=== PATIENT | male | born 1995 | race Caucasian/White ===

== ENCOUNTER 2016-06-26 21:35 | Emergency (ER) | payer MEDICAID, OTHER ==
[~2016-06-26] VITALS: Ht 170.2 cm; Wt 55.0 kg
[~2016-06-26 21:35] MED LIST: ARIP20 PO; BENZ1TAB PO; HALO5 PO; Patient Own Medication IM
[2016-06-26 21:39] VITALS: BP 156/72; PULSE 133; RESP 20; TEMP 99.2; O2SAT 98
[2016-06-26] MEDS ORDERED: BENZONATATE 100 MG CAP PO STA (22:08)
--- NOTE | 2016-06-26 22:11 | PD ---
HPI Chief Complaint: Cold / Flu Symptoms Time Seen by Provider: 22:00 Travel History International Travel<30 days: No Contact w/Intl Traveler<30days: No Traveled to known affect area: No History of Present Illness HPI This is a 20-year-old male with history of schizoaffective disorder who presents with his father's girlfriend for evaluation. For the past 3 days he has had cough, sore throat. The cough is worse tonight. He has been using over -the-counter cough and cold symptoms but it has persisted which prompted evaluation. He has had no recorded fevers. His father has had similar symptoms and his father was diagnosed with influenza, he is currently on Tamiflu. The patient has had difficulty sleeping because of the cough. He feels very anxious. Denies any drug use. He has no other complaints. PFSH Past Medical History ADHD: No Bipolar Disorder: Yes Anxiety: Yes Depression: Yes Cancer: No (Per patient) Cardiovascular Problems: No (Per patient) Diabetes: No Diminished Hearing: No Endocrine: No Genitourinary: No Headaches: No (Per patient) Immune Disorder: No Musculoskeletal: No Neurologic: No Psychiatric: Yes (Inpatient, outpatient, diagnosis and psychotropic medications ) Reproductive: No Respiratory: No Immunizations Current: No Migraines: No Schizophrenia: Yes Seizures: No (Per patient) Thyroid Disease: No Ulcer: No Past Surgical History Other Surgery: No Social History Alcohol Use: Yes (per hx..denied now) Tobacco Use: Yes (2-3 cigs a day) Substance Use: Yes (per hx..Admits to using: LSD, marijuana, hydrocodone, cocaine) Allergies-Medications (Allergen,Severity, Reaction): Coded Allergies: No Known Allergies (Verified , 06/26/16) Reported Meds & Prescriptions Reported Meds & Active Scripts Active Abilify (Aripiprazole) 20 Mg Tab 20 Mg PO 1/2BID Cogentin (Benztropine Mesylate) 1 Mg Tab 1 Mg PO 1/2 DAILY Haldol (Haloperidol) 5 Mg Tab 5 Mg PO HS [Patient Own Medication] 1 EA Ea 400 Ea IM Q30D ABILIFY MAINTAINA 400MG Review of Systems Except as stated in HPI: all other systems reviewed are Neg Physical Exam Narrative GENERAL: This is a well-developed well-nourished male in no acute distress. Pulse 133 in triage, he appears very anxious. Upon recheck it was 85. SKIN: Warm and dry. HEAD: Atraumatic. Normocephalic. EYES: Pupils equal and round. No scleral icterus. No injection or drainage. ENT: No nasal bleeding or discharge. Mucous membranes pink and moist. No oral pharyngeal erythema or exudate. NECK: Trachea midline. No JVD. No lymphadenopathy CARDIOVASCULAR: Regular rate and rhythm. No murmur appreciated. RESPIRATORY: No accessory muscle use. Clear to auscultation. Breath sounds equal bilaterally. No crackles no wheezing or rhonchi GASTROINTESTINAL: Abdomen soft, non-tender, nondistended. Hepatic and splenic margins not palpable. MUSCULOSKELETAL: No obvious deformities. No edema. NEUROLOGICAL: Awake and alert. No obvious cranial nerve deficits. Motor grossly within normal limits. Normal speech. Data Data Last Documented VS Vital Signs Date Time Temp Pulse Resp B/P Pulse Ox O2 Delivery O2 Flow Rate FiO2 06/26/16 22:12 85 06/26/16 21:39 99.2 20 156/72 98 Room Air Orders Chest, Pa & Lat (06/26/16 ) Influenzae A/B Antigen (06/26/16 22:08) Benzonatate (Tessalon) (06/26/16 22:08) Ibuprofen (Motrin) (06/26/16 22:15) MDM Medical Decision Making Medical Screen Exam Complete: Yes Emergency Medical Condition: Yes Medical Record Reviewed: Yes Differential Diagnosis Influenza, bronchitis, pneumonia Narrative Course 20-year-old male with 3 days of cough and congestion. Initially tachycardic in triage, appearing very anxious. He was immediately rechecked when he was embedded and his pulse was 85. I feel that this was secondary to anxiety. He does not appear septic. Plan is for chest x-ray, influenza. Tessalon and ibuprofen administered. Chest x-ray is normal. Influenza antigen is normal however given history of his father being diagnosed with influenza I suspect that the patient has influenza as well. Symptoms started 3 days ago and therefore Tamiflu would not be prescribed. He will be discharged with Tessalon for cough suppression. Diagnosis Primary Impression: Upper respiratory infection Qualified Code: J06.9 - Upper respiratory tract infection, unspecified type Additional Instructions: Tessalon for cough. Stay well hydrated well-nourished. [id number] Tylenol or Motrin for fever per dosing instructions on the bottle. Follow-up with primary care physician as needed. Return for any emergent medical conditions. Med/Other Pt SpecificInfo: Prescription(s) given Scripts Benzonatate (Tessalon Perles)100 Mg [id number] Mg PO TID PRN (COUGH) #30 CAP Ref 0 Prov:Maulik Ryan MD 06/26/16 Disposition: 01 DISCHARGE HOME Condition: Stable Connor Narayanan Jun 26, 2016 22:11
[2016-06-26 22:12] VITALS: PULSE 85
[2016-06-26] MEDS ORDERED: IBUPROFEN 800 MG TAB PO ONE (22:15)
--- NOTE | 2016-06-26 22:44 | RADRPT ---
EXAM DATE/TIME: 06/26/2016 22:33 [facility] COMPARISON: CHEST SINGLE AP, April 02, 2014, 14:23. INDICATIONS : Cough, shortness of breath for 1 week MEDICAL HISTORY : None. SURGICAL HISTORY : None. ENCOUNTER: Initial ACUITY: 1 week PAIN SCORE: 0/10 LOCATION: Bilateral chest FINDINGS: PA and lateral views of the chest demonstrate the lungs to be symmetrically aerated without evidence of mass, infiltrate or effusion. The cardiomediastinal contours are unremarkable. Osseous structure s are intact. There is a mild thoracic dextroconvex curvature. CONCLUSION: No evidence of acute cardiopulmonary disease. Mic Villegas MD on June 26, 2016 at 22:42 Board Certified Radiologist. This report was verified electronically.
[2016-06-26] MEDS ORDERED: BENZ100 PO (23:12)
== END 2016-06-26 23:42 | disposition home or self-care (01) ==
LOC: NEPK 21:35
DX: J06.9 Acute upper respiratory infection, unspecified (principal); Z72.0 Tobacco use
CPT/HCPCS: 71020; 87804; 99283

== ENCOUNTER 2016-10-08 17:17 | Emergency (ER) | payer MEDICAID ==
[~2016-10-08] VITALS: Ht 170.2 cm; Wt 55.0 kg
[~2016-10-08 17:17] MED LIST changes: +BENZ100 PO
[2016-10-08 17:18] VITALS: BP 139/92; PULSE 114; RESP 16; TEMP 98.3; O2SAT 99
--- NOTE | 2016-10-08 18:00 | PD ---
Physical Exam Time Seen by Provider: 17:59 Narrative 21 y/o male hx of schizophrenia here for evaluation of L hand pain secondary to "arthritis." Vital signs reviewed. Seen at triage desk. Awaiting bed placement. Data Data Last Documented VS Vital Signs Date Time Temp Pulse Resp B/P Pulse Ox O2 Delivery O2 Flow Rate FiO2 10/08/16 17:18 98.3 114 16 139/92 99 MDM Medical Record Reviewed: Yes Supervised Visit with ESTEVAN: Connor Bustamante Oct 08, 2016 18:00
== END 2016-10-08 21:21 | disposition left against medical advice (07) ==
LOC: NED 17:17
DX: M25.542 Pain in joints of left hand (principal); M19.90 Unspecified osteoarthritis, unspecified site; F20.9 Schizophrenia, unspecified
CPT/HCPCS: 99281

== ENCOUNTER 2016-10-09 10:10 | Emergency (ER) | payer MEDICAID ==
[~2016-10-09] VITALS: Ht 170.2 cm; Wt 55.0 kg
[2016-10-09 10:11] VITALS: BP 145/72; PULSE 97; RESP 20; TEMP 99; O2SAT 99
--- NOTE | 2016-10-09 10:47 | PD ---
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 He reports weakness to the left hand. Denies new or recent injury. Denies fever, vomiting. He has no emergent medical complaints at this time. Symptoms are mild in severity. Has no other medical complaints. Notify factors or associated signs and symptoms. History Past Medical Histgory Hx Cancer: No (Per patient) Social History Alcohol Use: Yes (per hx..denied now) Tobacco Use: Yes (2-3 cigs a day) Allergies-Medications (Allergen,Severity, Reaction): Coded Allergies: No Known Allergies (Verified , 10/08/16) Reported Meds & Prescriptions Reported Meds & Active Scripts Active Tessalon Perles (Benzonatate) 100 Mg Cap 200 Mg PO TID PRN [Patient Own Medication] 1 EA Ea 400 Ea IM Q30D ABILIFY MAINTAINA 400MG Abilify 20 mg (Aripiprazole) 20 Mg Tab 20 Mg PO 1/2BID Benztropine Mesylate 1 Mg Tab 1 Mg PO 1/2 DAILY Haldol (Haloperidol) 5 Mg Tab 5 Mg PO HS Review of Systems Except as stated in HPI: all other systems reviewed are Neg Physical Exam Narrative GENERAL: Well-nourished, well-developed male patient, in no acute distress SKIN: Warm and dry. HEAD: Atraumatic. Normocephalic. EYES: Pupils equal and round. No scleral icterus. No injection or drainage. ENT: Mucosa pink and moist. Airway patent. NECK: Trachea midline. CARDIOVASCULAR: Regular rate. RESPIRATORY: No accessory muscle use. GASTROINTESTINAL: Flat. MUSCULOSKELETAL: Left upper extremities supple and non-tense with 2+ radial pulses and sensory intact; mildly decreased steel turner strength compared to the right hand; left forearm and hand appears thinner than the right forearm; with full range of motion at the shoulder, elbow, wrist and all finger joints. No clubbing. No cyanosis. No edema. NEUROLOGICAL: Awake and alert. Oriented 3. No obvious cranial nerve deficits. Motor grossly within normal limits. Normal speech. PSYCHIATRIC: Appropriate mood and affect; insight and judgment normal. Data Data Last Documented VS Vital Signs Date Time Temp Pulse Resp B/P Pulse Ox O2 Delivery O2 Flow Rate FiO2 10/09/16 10:11 99.0 97 20 145/72 99 Room Air MDM Medical Screen Exam Complete: Yes Emergency Medical Condition: No Differential Diagnosis Medical clearance, malingering, atrophy of left forearm and hand, arthritis Narrative Course 21-year-old male requesting a letter to be sent to a gentleman that works for the [employer] so he can be approved for a medical marijuana card. Vital signs are stable and the patient is stable for outpatient follow-up and treatment. The patient has no urgent or emergent medical complaints. There is no emergent or urgent medical need at this time. I instructed the patient to follow up with their primary care provider. A medical screening exam was performed: At the time of evaluation the presenting medical condition was determined not to be of an emergent nature. The patient was given the option of receiving additional care, but declined. Patient was given options for additional community resources from which to obtain care. The Patient Has Been advised to seek medical attention for their presenting complaint. The patient has been advised to return to the ER at any time if an emergent condition develops. Primary Impression: Encounter for medical screening examination Condition: Stable Ebonie Pratt [facility] Oct 09, 2016 10:47
== END 2016-10-09 10:49 | disposition left against medical advice (07) ==
LOC: NEPK 10:10
DX: M62.81 Muscle weakness (generalized) (principal)
CPT/HCPCS: 99281

== ENCOUNTER 2016-12-06 19:53 | Emergency (ER) | payer MEDICAID, OTHER ==
[~2016-12-06] VITALS: Ht 162.6 cm; Wt 60.0 kg
[2016-12-06 19:56] VITALS: BP 112/89; PULSE 89; RESP 16; TEMP 99.1; O2SAT 99
[2016-12-06] MEDS ORDERED: LORazepam 2 MG/ML VIAL IM ONE (20:15)
--- NOTE | 2016-12-06 20:19 | PD ---
HPI Chief Complaint: Psychiatric Symptoms Time Seen by Provider: 20:07 Travel History International Travel<30 days: No Contact w/Intl Traveler<30days: No Traveled to known affect area: No History of Present Illness HPI 21 YO M with PMH of bipolar, depression, anxiety presents to the ED under [facility] for psychiatric evaluation. Per the [facility] paperwork the patient made suicidal statements. He is currently on medication for schizophrenia has not been able to adjust mentally to the new dosage. On presentation the patient is angry, defiant, cursing, refusing examination. He states "My Dad always says I'm psychotic, when I'm not." He is unable to provide any meaningful history. PFSH Past Medical History ADHD: No Bipolar Disorder: Yes Anxiety: Yes Depression: Yes Cancer: No (Per patient) Cardiovascular Problems: No (Per patient) Diabetes: No Diminished Hearing: No Endocrine: No Genitourinary: No Headaches: No (Per patient) Immune Disorder: No Musculoskeletal: No Neurologic: No Psychiatric: Yes (Inpatient, outpatient, diagnosis and psychotropic medications ) Reproductive: No Respiratory: No Immunizations Current: No Migraines: No Schizophrenia: Yes Seizures: No (Per patient) Thyroid Disease: No Ulcer: No Past Surgical History Other Surgery: No Social History Alcohol Use: Yes (per hx..denied now) Tobacco Use: Yes (2-3 cigs a day) Substance Use: Yes (per hx..Admits to using: LSD, marijuana, hydrocodone, cocaine) Allergies-Medications (Allergen,Severity, Reaction): Coded Allergies: No Known Allergies (Verified , 10/08/16) Reported Meds & Prescriptions Reported Meds & Active Scripts Active Reported Abilify Maintena ER Inj (Aripiprazole) 300 Mg Susp 300 Mg IM Q28D Review of Systems Except as stated in HPI: all other systems reviewed are Neg Physical Exam Exam Limitations: Uncooperative Narrative GENERAL: Well-nourished, well-developed male in no acute distress. PSYCHIATRIC: Angry, defensive, responding to internal stimuli. SKIN: Focused skin assessment warm/dry. HEAD: Normocephalic. EYES: No scleral icterus. No injection or drainage. NECK: Supple, trachea midline. No JVD or lymphadenopathy. CARDIOVASCULAR: Regular rate and rhythm without murmurs, gallops, or rubs. RESPIRATORY: Breath sounds and equal bilaterally. No accessory muscle use. GASTROINTESTINAL: Abdomen soft, non-tender, nondistended. Active bowel sounds. MUSCULOSKELETAL: No cyanosis, or edema. Moves easily from sitting to standing positions. BACK: Nontender without obvious deformity. No CVA tenderness. Data Data Last Documented VS Vital Signs Date Time Temp Pulse Resp B/P (MAP) Pulse Ox O2 Delivery O2 Flow Rate FiO2 12/06/16 19:56 99.1 89 16 112/89 (97) 99 Orders Orders Complete Blood Count With Diff (12/06/16 20:11) Comprehensive Metabolic Panel (12/06/16 20:11) Psych Screen (12/06/16 20:11) Lorazepam Inj (Ativan Inj) (12/06/16 20:15) Restraints Violent (12/06/16 20:11) Drug Screen, Random Urine (12/06/16 20:11) Diet Regular Basic (12/06/16 Dinner) Haloperidol Inj (Haldol Inj) (12/06/16 21:45) Labs Laboratory Tests Test 12/06/16 20:10 White Blood Count 10.2 TH/MM3 Red Blood Count 5.17 MIL/MM3 Hemoglobin 15.3 GM/DL Hematocrit 46.1 % Mean Corpuscular Volume 89.2 FL Mean Corpuscular Hemoglobin 29.6 PG Mean Corpuscular Hemoglobin Concent 33.2 % Red Cell Distribution Width 13.5 % Platelet Count 282 TH/MM3 Mean Platelet Volume 7.9 FL Neutrophils (%) (Auto) 59.8 % Lymphocytes (%) (Auto) 30.9 % Monocytes (%) (Auto) 8.8 % Eosinophils (%) (Auto) 0.1 % Basophils (%) (Auto) 0.4 % Neutrophils # (Auto) 6.1 TH/MM3 Lymphocytes # (Auto) 3.1 TH/MM3 Monocytes # (Auto) 0.9 TH/MM3 Eosinophils # (Auto) 0.0 TH/MM3 Basophils # (Auto) 0.0 TH/MM3 CBC Comment DIFF FINAL Differential Comment Blood Urea Nitrogen 11 MG/DL Creatinine 0.98 MG/DL Random Glucose 92 MG/DL Total Protein 7.9 GM/DL Albumin 4.6 GM/DL Calcium Level 9.4 MG/DL Alkaline Phosphatase 71 U/L Aspartate Amino Transf (AST/SGOT) 16 U/L Alanine Aminotransferase (ALT/SGPT) 18 U/L Total Bilirubin 0.7 MG/DL Sodium Level 139 MEQ/L Potassium Level 3.5 MEQ/L Chloride Level 104 MEQ/L Carbon Dioxide Level 27.2 MEQ/L Anion Gap 8 MEQ/L Estimat Glomerular Filtration Rate 97 ML/MIN Urine Opiates Screen NEG Urine Barbiturates Screen NEG Urine Amphetamines Screen NEG Urine Benzodiazepines Screen NEG Urine Cocaine Screen NEG Urine Cannabinoids Screen NEG MDM Medical Decision Making Medical Screen Exam Complete: Yes Emergency Medical Condition: Yes Differential Diagnosis Adjustment disorder versus anxiety versus bipolar versus depression versus dementia versus electrolyte disorder versus malingering versus mood disorder versus ODD versus psychosis versus PTSD versus schizophrenia versus schizoaffective disorder versus substance-induced mood disorder versus other Narrative Course 21 YO M with PMH of bipolar, depression, anxiety presents to the ED under [facility] for psychiatric evaluation. Per the [facility] paperwork the patient made suicidal statements. He is currently on medication for schizophrenia has not been able to adjust mentally to the new dosage. On presentation the patient is angry, defiant, cursing, refusing examination. He states "My Dad always says I'm psychotic, when I'm not." He is unable to provide any meaningful history. Vitals reviewed. Patient was administered 2 mg Ativan IM. I was able to obtain a better history, although the patient is tangential and difficult to redirect. Apparently the patient was listening to some music on his headphones he stated that it "sounded different" and made him feel suicidal. He denies auditory or visual hallucinations. He becomes very defensive, saying "they always ask you that to tell if your psychotic and I'm not." He denies suicidal or homicidal ideation. He denies somatic complaints. He says that he gets bimonthly injections at [facility] but he does not know the name of the medication. Physical exam is unremarkable. No concerning abnormalities or lab work. He is responding to internal stimuli. The patient is medically cleared for psychiatric evaluation. Discharge per psychiatric recommendations. Fabi Olmos Dec 06, 2016 20:19
[2016-12-06 20:44] LABS: AUTOMATED NEUTROPHIL # 6.1 TH/MM3 (1.8-7.7); BASOPHIL % 0.4 % (0.0-2.0); EOSINOPHIL % 0.1 % (0.0-4.0); HEMATOCRIT 46.1 % (39.0-51.0); HEMO FLAGS DIFF FINAL; LYMPH % 30.9 % (9.0-44.0); LYMPHOCYTE # 3.1 TH/MM3 (1.0-4.8); MEAN CELL VOLUME 89.2 FL (80.0-100.0); MEAN CORPUSCULAR HEMOGLOBIN 29.6 PG (27.0-34.0); MEAN CORPUSCULAR HGB CONC 33.2 % (32.0-36.0); MONO % 8.8 % (0.0-8.0); NEUT % 59.8 % (16.0-70.0); PLATELET COUNT 282 TH/MM3 (150-450); RED BLOOD COUNT 5.17 MIL/MM3 (4.50-5.90); RED CELL DISTRIBUTION WIDTH 13.5 % (11.6-17.2); WHITE BLOOD COUNT 10.2 TH/MM3 (4.0-11.0)
[2016-12-06 20:56] LABS: ANION GAP 8 MEQ/L (5-15); AST (GOT) 16 U/L (15-37); BICARBONATE 27.2 MEQ/L (21.0-32.0); BLOOD UREA NITROGEN 11 MG/DL (7-18); CHLORIDE 104 MEQ/L (98-107); GLOMERULAR FILTRATION RATE 97 ML/MIN (>89); POTASSIUM 3.5 MEQ/L (3.5-5.1); SODIUM (NA) 139 MEQ/L (136-145)
[2016-12-06 20:58] LABS: ALT (GPT) 18 U/L (12-78)
[2016-12-06 20:59] LABS: ALKALINE PHOSPHATASE 71 U/L (45-117); TOTAL BILIRUBIN ADULT 0.7 MG/DL (0.2-1.0)
[2016-12-06] MEDS ORDERED: HALOPERIDOL LACTATE 5 MG/ML AMP IM ONE (21:45)
[2016-12-06] MEDS ORDERED: ARIP300I IM (22:03)
[2016-12-06] MEDS ORDERED: ARIP400I IM (22:17)
== END 2016-12-07 00:53 ==
LOC: NEPD 19:53
DX: F20.9 Schizophrenia, unspecified (principal); Z72.0 Tobacco use
CPT/HCPCS: 80053; 80307; 85025; 96372; 99284; J1630; J2060

== ENCOUNTER 2017-03-21 16:03 | Emergency (ER) | payer SELFPAY ==
[~2017-03-21 16:03] MED LIST changes: -ARIP20 PO; +ARIP400I IM; -BENZ100 PO; -BENZ1TAB PO; -HALO5 PO; -Patient Own Medication IM
[2017-03-21 16:11] VITALS: BP 127/59; PULSE 125; RESP 18; TEMP 97.6; O2SAT 100
--- NOTE | 2017-03-21 17:09 | PD ---
HPI Chief Complaint: Seizure Time Seen by Provider: 16:25 Travel History International Travel<30 days: No Contact w/Intl Traveler<30days: No Traveled to known affect area: No History of Present Illness HPI Patient is a 21-year-old male presents emergency department for evaluation of seizure-like activity while playing be due games. Patient has no history of seizure activity in the past. Does take Wellbutrin for depression and apparent psychosis. Dad states he was playing be against her thumb and then went to investigate and found the patient on the floor shaking violently, he was confused for several minutes following the event and a period of what dad describes as near apnea but only lasted for a few seconds. That is certainly quite concerned with the patient's presentation. Patient states he feels well now only complains of a mild abrasion to his left periorbital region. Denies any chest pain shortness of breath extremity pain back pain nausea vomiting diarrhea visual difficulties or headache. PFSH Past Medical History ADHD: No Bipolar Disorder: Yes Anxiety: Yes Depression: Yes Diabetes: No Diminished Hearing: No Endocrine: No Genitourinary: No Immune Disorder: No Musculoskeletal: No Neurologic: No Psychiatric: Yes (Inpatient, outpatient, diagnosis and psychotropic medications ) Reproductive: No Respiratory: No Immunizations Current: No Migraines: No Schizophrenia: Yes Thyroid Disease: No Ulcer: No ?: Not Past Surgical History Other Surgery: No Social History Alcohol Use: Yes (per hx..denied now) Tobacco Use: Yes (2-3 cigs a day) Substance Use: Yes (per hx..Admits to using: LSD, marijuana, hydrocodone, cocaine) Allergies-Medications (Allergen,Severity, Reaction): Coded Allergies: No Known Allergies (Verified Adverse Reaction, Unknown, 03/21/17) Reported Meds & Prescriptions Reported Meds & Active Scripts Active Reported Wellbutrin SR 12 HR (Bupropion HCl) 150 Mg Tab 150 Mg PO Q12HR Abilify (Aripiprazole) 15 Mg Tab 15 Mg PO DAILY Review of Systems Except as stated in HPI: all other systems reviewed are Neg Physical Exam Narrative GENERAL: Well-developed well-nourished no obvious distress SKIN: Focused skin assessment warm/dry. HEAD: No crisostomo signs no raccoons eyes, there is a half centimeter laceration superficial about a centimeter lateral and superficial to the left lateral canthus, there is also some abrasion here.. Normocephalic. EYES: Pupils equal and round. No scleral icterus. No injection or drainage. ENT: No nasal bleeding or discharge. Mucous membranes pink and moist. No tongue laceration oropharynx clear. NECK: Trachea midline. No JVD. CARDIOVASCULAR: Regular rate and rhythm. No murmur appreciated. RESPIRATORY: No accessory muscle use. Clear to auscultation. Breath sounds equal bilaterally. GASTROINTESTINAL: Abdomen soft, non-tender, nondistended. Hepatic and splenic margins not palpable. MUSCULOSKELETAL: No obvious deformities. No clubbing. No cyanosis. No edema. NEUROLOGICAL: Awake and alert. Cranial nerves II through XII are grossly intact and nonfocal, 5 out of 5 strength in all 4 extremity's, cerebellar testing negative, and relates with an even narrow based gait. PSYCHIATRIC: Appropriate mood and affect; insight and judgment normal. Data Data Last Documented VS Vital Signs Date Time Temp Pulse Resp B/P (MAP) Pulse Ox O2 Delivery O2 Flow Rate FiO2 03/21/17 17:15 113 18 100 Room Air 03/21/17 16:11 97.6 127/59 (81) Orders Orders Complete Blood Count With Diff (03/21/17 17:01) Basic Metabolic Panel (Bmp) (03/21/17 17:01) Ct Brain W/O Iv Contrast(Rout) (03/21/17 ) Ecg Monitoring (03/21/17 17:01) Iv Access Insert/Monitor (03/21/17 17:01) Oximetry (03/21/17 17:01) Sodium Chloride 0.9% Flush (Ns Flush) (03/21/17 17:15) Ed Discharge Order (03/21/17 18:41) Mandatory Outpatient Referral (03/21/17 19:52) Labs Laboratory Tests Test 03/21/17 17:19 White Blood Count 15.6 TH/MM3 Red Blood Count 5.16 MIL/MM3 Hemoglobin 15.7 GM/DL Hematocrit 46.3 % Mean Corpuscular Volume 89.8 FL Mean Corpuscular Hemoglobin 30.4 PG Mean Corpuscular Hemoglobin Concent 33.9 % Red Cell Distribution Width 12.8 % Platelet Count 258 TH/MM3 Mean Platelet Volume 8.3 FL Neutrophils (%) (Auto) 87.8 % Lymphocytes (%) (Auto) 6.5 % Monocytes (%) (Auto) 5.2 % Eosinophils (%) (Auto) 0.2 % Basophils (%) (Auto) 0.3 % Neutrophils # (Auto) 13.7 TH/MM3 Lymphocytes # (Auto) 1.0 TH/MM3 Monocytes # (Auto) 0.8 TH/MM3 Eosinophils # (Auto) 0.0 TH/MM3 Basophils # (Auto) 0.1 TH/MM3 CBC Comment DIFF FINAL Differential Comment Blood Urea Nitrogen 10 MG/DL Creatinine 1.02 MG/DL Random Glucose 106 MG/DL Calcium Level 8.9 MG/DL Sodium Level 138 MEQ/L Potassium Level 4.0 MEQ/L Chloride Level 103 MEQ/L Carbon Dioxide Level 25.9 MEQ/L Anion Gap 9 MEQ/L Estimat Glomerular Filtration Rate 92 ML/MIN MDM Medical Decision Making Medical Screen Exam Complete: Yes Emergency Medical Condition: Yes Differential Diagnosis Epileptic seizure, medication reaction, electro-light abnormality, head injury, laceration. Narrative Course Is roomed emergency department, neurologically nonfocal on arrival, appears to have seizure brought on by video game. No seizure activity seen in the emergency department, neurologically nonfocal, initial workup including CBC BMP CT head negative. Discussed with him symptomatic management first aid for seizures returned ED criteria follow-up with neurology as well as his prescribing physician. Dad also states that he's been out of his Wellbutrin starting today. He is stable for discharge. Is no indication to start antiepileptics after a first seizure. Diagnosis Primary Impression: Seizure Referrals: Mani Nagel MD Additional Instructions: Discussed with her psychiatrist at your earliest possible convenience with possibility of discontinuing Wellbutrin as this may contribute to seizures. You are not to play any video games until discussing with both her psychiatrist in Dr. Nagel's as this may trigger an additional seizure Disposition: 01 DISCHARGE HOME Condition: Stable Elvis Canseco MD Mar 21, 2017 17:09
[2017-03-21 17:15] VITALS: PULSE 113; RESP 18; O2SAT 100
[2017-03-21] MEDS ORDERED: SODIUM CHLORIDE 0.9% FLUSH 10 ML FLUSH IVF PRN (17:15)
[2017-03-21] MEDS ORDERED: BUPR150CR PO (17:15)
[2017-03-21] MEDS ORDERED: ABIL15TA3 PO (17:15)
[2017-03-21 17:30] LABS: AUTOMATED NEUTROPHIL # 13.7 TH/MM3 (1.8-7.7); BASOPHIL # 0.1 TH/MM3 (0-0.2); BASOPHIL % 0.3 % (0.0-2.0); EOSINOPHIL % 0.2 % (0.0-4.0); HEMATOCRIT 46.3 % (39.0-51.0); HEMOGLOBIN 15.7 GM/DL (13.0-17.0); LYMPH % 6.5 % (9.0-44.0); MEAN CELL VOLUME 89.8 FL (80.0-100.0); MEAN CORPUSCULAR HEMOGLOBIN 30.4 PG (27.0-34.0); MEAN CORPUSCULAR HGB CONC 33.9 % (32.0-36.0); MEAN PLATELET VOLUME 8.3 FL (7.0-11.0); MONO % 5.2 % (0.0-8.0); MONOCYTE # 0.8 TH/MM3 (0-0.9); NEUT % 87.8 % (16.0-70.0); PLATELET COUNT 258 TH/MM3 (150-450); RED BLOOD COUNT 5.16 MIL/MM3 (4.50-5.90); RED CELL DISTRIBUTION WIDTH 12.8 % (11.6-17.2); WHITE BLOOD COUNT 15.6 TH/MM3 (4.0-11.0)
[2017-03-21 18:00] LABS: BICARBONATE 25.9 MEQ/L (21.0-32.0); CALCIUM 8.9 MG/DL (8.5-10.1); CREATININE 1.02 MG/DL (0.60-1.30)
--- NOTE | 2017-03-21 18:23 | RADRPT ---
EXAM DATE/TIME: 03/21/2017 18:04 [facility] COMPARISON: CT BRAIN W/O CONTRAST, April 02, 2014, 7:26. INDICATIONS : Syncope, fell hit head, seizure. RADIATION DOSE: 36.93 CTDIvol (mGy) MEDICAL HISTORY : Seizures. Cardiovascular disease Schizophrenic, cancer unknow etilogy SURGICAL HISTORY : None. ENCOUNTER: Initial ACUITY: 1 day PAIN SCALE: 4/10 LOCATION: Left brow and eye TECHNIQUE: Multiple contiguous axial images were obtained of the head. Using automated exposure control and adj ustment of the mA and/or kV according to patient size, radiation dose was kept as low as reasonably a chievable to obtain optimal diagnostic quality images. DICOM format image data is available electro nically for review and comparison. FINDINGS: CEREBRUM: The ventricles are normal for age. No evidence of midline shift, mass lesion, hemorrhage or acute in farction. No extra-axial fluid collections are seen. POSTERIOR FOSSA: The cerebellum and brainstem are intact. The 4th ventricle is midline. The cerebellopontine angle i s unremarkable. EXTRACRANIAL: The visualized portion of the orbits is intact. SKULL: The calvaria is intact. No evidence of skull fracture. CONCLUSION: Normal examination. Conrad Chino Jr., MD on March 21, 2017 at 18:20 Board Certified Radiologist. This report was verified electronically.
--- NOTE | 2017-03-21 20:01 | PD ---
Physical Exam Time Seen by Provider: 19:20 Data Data Last Documented VS Vital Signs Date Time Temp Pulse Resp B/P (MAP) Pulse Ox O2 Delivery O2 Flow Rate FiO2 03/21/17 17:15 113 18 100 Room Air 03/21/17 16:11 97.6 127/59 (81) Orders Orders Complete Blood Count With Diff (03/21/17 17:01) Basic Metabolic Panel (Bmp) (03/21/17 17:01) Ct Brain W/O Iv Contrast(Rout) (03/21/17 ) Ecg Monitoring (03/21/17 17:01) Iv Access Insert/Monitor (03/21/17 17:01) Oximetry (03/21/17 17:01) Sodium Chloride 0.9% Flush (Ns Flush) (03/21/17 17:15) Ed Discharge Order (03/21/17 18:41) Mandatory Outpatient Referral (03/21/17 19:52) Labs Laboratory Tests Test 03/21/17 17:19 White Blood Count 15.6 TH/MM3 Red Blood Count 5.16 MIL/MM3 Hemoglobin 15.7 GM/DL Hematocrit 46.3 % Mean Corpuscular Volume 89.8 FL Mean Corpuscular Hemoglobin 30.4 PG Mean Corpuscular Hemoglobin Concent 33.9 % Red Cell Distribution Width 12.8 % Platelet Count 258 TH/MM3 Mean Platelet Volume 8.3 FL Neutrophils (%) (Auto) 87.8 % Lymphocytes (%) (Auto) 6.5 % Monocytes (%) (Auto) 5.2 % Eosinophils (%) (Auto) 0.2 % Basophils (%) (Auto) 0.3 % Neutrophils # (Auto) 13.7 TH/MM3 Lymphocytes # (Auto) 1.0 TH/MM3 Monocytes # (Auto) 0.8 TH/MM3 Eosinophils # (Auto) 0.0 TH/MM3 Basophils # (Auto) 0.1 TH/MM3 CBC Comment DIFF FINAL Differential Comment Blood Urea Nitrogen 10 MG/DL Creatinine 1.02 MG/DL Random Glucose 106 MG/DL Calcium Level 8.9 MG/DL Sodium Level 138 MEQ/L Potassium Level 4.0 MEQ/L Chloride Level 103 MEQ/L Carbon Dioxide Level 25.9 MEQ/L Anion Gap 9 MEQ/L Estimat Glomerular Filtration Rate 92 ML/MIN [facility] Medical Record Reviewed: Yes Supervised Visit with ESTEVAN: Yes Narrative Course I was asked by Dr. Canseco to repair a laceration on this patient. Please see his note for details. Procedures Procedure Narrative LACERATION LOCATION: Left eyelid LENGTH: 0.5 cm REPAIR: The area of the laceration was prepped with chlorhexidine. The wound was copiously irrigated and explored without evidence of foreign body, tendon injury or neurovascular injury. The wound was closed using Dermabond. This was a single layer repair. A sterile dressing was applied. The patient was advised to keep the dressing clean and dry. Patient tolerated the procedure well. Diagnosis Primary Impression: Seizure Referrals: Mani Nagel MD Patient Instructions: General Instructions, Epilepsy (ED) Departure Forms: Tests/Procedures Additional Instruction: Discussed with her psychiatrist at your earliest possible convenience with possibility of discontinuing Wellbutrin as this may contribute to seizures. You are not to play any video games until discussing with both her psychiatrist in Dr. Nagel's as this may trigger an additional seizure Disposition: 01 DISCHARGE HOME Condition: Stable Jessica Taylro Mar 21, 2017 20:01
== END 2017-03-21 20:18 | disposition home or self-care (01) ==
LOC: NEPE 16:03
DX: R56.9 Unspecified convulsions (principal); S01.112A Laceration without foreign body of left eyelid and periocular area, initial encounter; F31.9 Bipolar disorder, unspecified; F41.8 Other specified anxiety disorders; F20.9 Schizophrenia, unspecified; Z72.0 Tobacco use; X58.XXXA Exposure to other specified factors, initial encounter
CPT/HCPCS: 12011; 70450; 80048; 85025